=== PATIENT | male | born 1955 | race African-American/Black ===

== ENCOUNTER → 2022-09-30 | Outpatient (CLI) | payer OTHER ==
[2022-09-30 09:08] LABS: Urine WBC None Seen /hpf (0 - 3)
[2022-09-30 09:13] LABS: Basophils # (auto) 0 10 ^3/uL (0-0.2); Basophils % (auto) 0.8 % (0.0-2.0); Eosinophils # (auto) 0.5 10 ^3/uL (0-0.8); Hematocrit 35.5 % (41.0-53.0); Lymphocytes # (auto) 2.1 10 ^3/uL (0.4-5.4); Mean Corpuscular Hemoglobin 31.4 pg (28.0-32.0); Mean Corpuscular Hgb Conc. 33.9 g/dL (32.0-36.0); Mean Corpuscular Volume 92.6 fL (80.0-100.0); Monocytes # (auto) 0.5 10 ^3/uL (0-1.3); Monocytes % (auto) 10.3 % (0.0-12.0); Neutrophils # (auto) 1.9 10 ^3/uL (1.6-8.6); Neutrophils % (auto) 37.9 % (37.0-80.0); Nucleated Red Blood Cells % 0.1 %; Red Blood Cells 3.83 10^6/uL (4.5-5.90); Red Cell Distribution Width 13.3 % (11.8-14.3)
[2022-09-30 09:27] LABS: Urine Bacteria NONE SEEN /hpf (None Seen); Urine Blood Negative /uL (Negative); Urine Specific Gravity 1.017 (1.001-1.035)
[2022-09-30 10:16] LABS: Potassium 3.5 mmol/L (3.5-5.1)
[2022-09-30 10:25] LABS: Folate (Folic Acid) 10.34 ng/mL (5.38-24)
[2022-09-30 10:26] LABS: Albumin 3.4 g/dL (3.4-5.0); BUN/Creatinine Ratio 15.3 (10.0-20.0); Bilirubin, Total 0.5 mg/dL (0.2-1.0); Calcium 8.2 mg/dL (8.5-10.1); Total Protein 7.4 g/dL (6.4-8.2)
== END | disposition home or self-care (01) ==
LOC: LAB 08:54
PROVIDERS: ATTEND Internal Medicine
DX: R79.89 Other specified abnormal findings of blood chemistry (principal); E78.49 Other hyperlipidemia; R68.89 Other general symptoms and signs; R73.09 Other abnormal glucose
CPT/HCPCS: 36415; 80053; 80061; 81001; 82306; 82607; 82746; 83036; 84443; 84550; 85025; 87086

== ENCOUNTER → 2023-04-14 | Outpatient (CLI) | payer OTHER ==
[2023-04-14 09:04] LABS: Basophils # (auto) 0 10 ^3/uL (0-0.2); Basophils % (auto) 0.7 % (0.0-2.0); Eosinophils # (auto) 0.2 10 ^3/uL (0-0.8); Eosinophils % (auto) 4.2 % (0.0-7.0); Hematocrit 37.8 % (41.0-53.0); Hemoglobin 12.7 g/dL (13.5-17.5); Lymphocytes # (auto) 2.1 10 ^3/uL (0.4-5.4); Lymphocytes % (auto) 41.3 % (10.0-50.0); Mean Corpuscular Hemoglobin 31.1 pg (28.0-32.0); Mean Corpuscular Hgb Conc. 33.6 g/dL (32.0-36.0); Mean Corpuscular Volume 92.6 fL (80.0-100.0); Monocytes # (auto) 0.5 10 ^3/uL (0-1.3); Monocytes % (auto) 10.4 % (0.0-12.0); Neutrophils # (auto) 2.2 10 ^3/uL (1.6-8.6); Neutrophils % (auto) 43.4 % (37.0-80.0); Nucleated Red Blood Cells % 0.1 %; Red Blood Cells 4.08 10^6/uL (4.5-5.90); Red Cell Distribution Width 13.4 % (11.8-14.3); White Blood Cell 5.1 10^3/uL (4.4-10.8)
[2023-04-14 09:18] LABS: Urine Bacteria NONE SEEN /hpf (None Seen); Urine Blood Negative /uL (Negative); Urine Clarity Clear (Clear); Urine Color Yellow (Yellow); Urine Protein, UAD Negative (Negative); Urine Specific Gravity 1.018 (1.001-1.035); Urine Urobilinogen Normal (Negative); Urine WBC <1 /hpf (0 - 3); Urine pH 5.5 (5.0-8.0)
[2023-04-14 09:46] LABS: Alanine Aminotransferase 22 U/L (7-40); Albumin 4.1 g/dL (3.2-4.8); Alkaline Phosphatase 56 U/L (46-116); Anion Gap 5 (5-15); Aspartate Aminotransferase 22 U/L (13-40); BUN/Creatinine Ratio 9.7 (10.0-20.0); Bilirubin, Total 0.6 mg/dL (0.2-1.0); Blood Urea Nitrogen 14 mg/dL (9-23); Calcium 9.5 mg/dL (8.5-10.1); Carbon Dioxide 28 mmol/L (20-30); Chloride 103 mmol/L (98-107); Cholesterol 141 mg/dL (< 200); Glucose 260 mg/dL (74-106); HDL Cholesterol 56 mg/dL (40-59); LDL Cholesterol 66 mg/dL (< 100); Potassium 4.5 mmol/L (3.5-5.1); Sodium 136 mmol/L (136-145); Total Protein 7.2 g/dL (5.7-8.2); Triglycerides 106 mg/dL (< 150)
[2023-04-14 10:19] LABS: Folate (Folic Acid) 12.31 ng/mL (>5.38)
== END | disposition home or self-care (01) ==
LOC: LAB 08:51
PROVIDERS: ATTEND Internal Medicine
DX: E61.9 Deficiency of nutrient element, unspecified (principal); R78.89 Finding of other specified substances, not normally found in blood; R68.89 Other general symptoms and signs; E78.9 Disorder of lipoprotein metabolism, unspecified; R94.6 Abnormal results of thyroid function studies; E79.0 Hyperuricemia without signs of inflammatory arthritis and tophaceous disease; R82.991 Hypocitraturia; E85.9 Amyloidosis, unspecified; R82.90 Unspecified abnormal findings in urine; R82.79 Other abnormal findings on microbiological examination of urine; D51.9 Vitamin B12 deficiency anemia, unspecified
CPT/HCPCS: 36415; 80053; 80061; 81001; 82306; 82607; 82746; 83036; 84443; 84484; 84550; 85025; 87086

== ENCOUNTER → 2023-06-13 | Outpatient (CLI) | payer OTHER ==
[2023-06-13 09:24] LABS: Basophils # (auto) 0 10 ^3/uL (0-0.2); Basophils % (auto) 0.7 % (0.0-2.0); Eosinophils # (auto) 0.3 10 ^3/uL (0-0.8); Eosinophils % (auto) 4.7 % (0.0-7.0); Hematocrit 38.8 % (41.0-53.0); Hemoglobin 12.9 g/dL (13.5-17.5); Lymphocytes # (auto) 2.3 10 ^3/uL (0.4-5.4); Lymphocytes % (auto) 42.9 % (10.0-50.0); Mean Corpuscular Hemoglobin 30.6 pg (28.0-32.0); Mean Corpuscular Hgb Conc. 33.2 g/dL (32.0-36.0); Mean Corpuscular Volume 92.1 fL (80.0-100.0); Monocytes # (auto) 0.6 10 ^3/uL (0-1.3); Neutrophils # (auto) 2.2 10 ^3/uL (1.6-8.6); Neutrophils % (auto) 40.7 % (37.0-80.0); Nucleated Red Blood Cells % 0.1 %; Red Blood Cells 4.22 10^6/uL (4.5-5.90); Red Cell Distribution Width 13.8 % (11.8-14.3); White Blood Cell 5.4 10^3/uL (4.4-10.8)
[2023-06-13 10:20] LABS: Alanine Aminotransferase 22 U/L (7-40); Alkaline Phosphatase 50 U/L (46-116); Anion Gap 7 (5-15); Aspartate Aminotransferase 29 U/L (13-40); BUN/Creatinine Ratio 11.5 (10.0-20.0); Bilirubin, Total 0.7 mg/dL (0.2-1.0); Blood Urea Nitrogen 15 mg/dL (9-23); Calcium 9.3 mg/dL (8.5-10.1); Carbon Dioxide 28 mmol/L (20-30); Chloride 101 mmol/L (98-107); Glucose 136 mg/dL (74-106); Potassium 3.8 mmol/L (3.5-5.1); Sodium 136 mmol/L (136-145)
[2023-06-13 10:21] LABS: Total Protein 6.8 g/dL (5.7-8.2)
[2023-06-13 10:36] LABS: Uric Acid 8.5 mg/dL (3.7-9.2)
[2023-06-13 10:54] LABS: Folate (Folic Acid) 13.02 ng/mL (>5.38)
== END | disposition home or self-care (01) ==
LOC: LAB 09:07
PROVIDERS: ATTEND Internal Medicine
DX: E61.2 Magnesium deficiency (principal); E79.0 Hyperuricemia without signs of inflammatory arthritis and tophaceous disease; R82.998 Other abnormal findings in urine; R94.6 Abnormal results of thyroid function studies; E55.9 Vitamin D deficiency, unspecified; D51.9 Vitamin B12 deficiency anemia, unspecified; R82.79 Other abnormal findings on microbiological examination of urine; R78.89 Finding of other specified substances, not normally found in blood; R68.89 Other general symptoms and signs; R73.09 Other abnormal glucose; E78.49 Other hyperlipidemia
CPT/HCPCS: 36415; 80053; 82306; 82607; 82746; 83036; 84443; 84550; 85025

== ENCOUNTER → 2023-10-03 | Outpatient (CLI) | payer OTHER ==
[2023-10-03 08:48] LABS: Calcium 9.4 mg/dL (8.5-10.1); Carbon Dioxide 30 mmol/L (20-30)
[2023-10-03 08:51] LABS: Chloride 103 mmol/L (98-107); Potassium 4.3 mmol/L (3.5-5.1); Sodium 135 mmol/L (136-145)
[2023-10-03 08:53] LABS: BUN/Creatinine Ratio 9.5 (10.0-20.0); Blood Urea Nitrogen 14 mg/dL (9-23); Glucose 358 mg/dL (74-106)
[2023-10-03 08:54] LABS: Creatinine, Urine 87.35 mg/dL (30.0-125.0)
[2023-10-03 11:38] LABS: Anion Gap 2 (5-15)
== END | disposition home or self-care (01) ==
LOC: LAB 07:54
PROVIDERS: ATTEND Internal Medicine
DX: E11.9 Type 2 diabetes mellitus without complications (principal)
CPT/HCPCS: 36415; 80048; 82043; 82570

== ENCOUNTER → 2024-07-08 | Outpatient (CLI) | payer OTHER ==
[2024-07-08 09:32] LABS: Basophils # (auto) 0 10 ^3/uL (0-0.2); Basophils % (auto) 0.5 % (0.0-2.0); Eosinophils # (auto) 0.3 10 ^3/uL (0-0.8); Eosinophils % (auto) 5.4 % (0.0-7.0); Hematocrit 40.5 % (41.0-53.0); Hemoglobin 13.6 g/dL (13.5-17.5); Lymphocytes # (auto) 2.5 10 ^3/uL (0.4-5.4); Lymphocytes % (auto) 44.7 % (10.0-50.0); Mean Corpuscular Hemoglobin 31.3 pg (28.0-32.0); Mean Corpuscular Hgb Conc. 33.7 g/dL (32.0-36.0); Mean Corpuscular Volume 92.8 fL (80.0-100.0); Monocytes # (auto) 0.6 10 ^3/uL (0-1.3); Monocytes % (auto) 9.9 % (0.0-12.0); Neutrophils # (auto) 2.2 10 ^3/uL (1.6-8.6); Neutrophils % (auto) 39.5 % (37.0-80.0); Nucleated Red Blood Cells % 0.1 %; Platelet Count (auto) 269 10^3/uL (140-450); Red Blood Cells 4.36 10^6/uL (4.5-5.90); Red Cell Distribution Width 13.7 % (11.8-14.3); White Blood Cell 5.6 10^3/uL (4.4-10.8)
[2024-07-08 10:07] LABS: Chloride 100 mmol/L (98-107); Potassium 4.1 mmol/L (3.5-5.1)
[2024-07-08 10:08] LABS: Anion Gap 5 (5-15); Carbon Dioxide 30 mmol/L (20-31)
[2024-07-08 10:13] LABS: BUN/Creatinine Ratio 11.9 (10.0-20.0); Blood Urea Nitrogen 17 mg/dL (9-23)
[2024-07-08 10:15] LABS: Glucose 241 mg/dL (74-106); Sodium 135 mmol/L (136-145)
== END | disposition home or self-care (01) ==
LOC: LAB 08:56
PROVIDERS: ATTEND Internal Medicine
DX: R78.89 Finding of other specified substances, not normally found in blood (principal); R68.89 Other general symptoms and signs; R73.09 Other abnormal glucose; E79.0 Hyperuricemia without signs of inflammatory arthritis and tophaceous disease; E61.2 Magnesium deficiency; R94.6 Abnormal results of thyroid function studies; E55.9 Vitamin D deficiency, unspecified; R82.90 Unspecified abnormal findings in urine; R82.79 Other abnormal findings on microbiological examination of urine; D51.9 Vitamin B12 deficiency anemia, unspecified
CPT/HCPCS: 36415; 80048; 82306; 83036; 85025; 87086

== ENCOUNTER 2025-01-06 08:12 | Outpatient (CLI) | payer OTHER ==
[2025-01-06 09:57] LABS: Chloride 105 mmol/L (98-107); Sodium 141 mmol/L (136-145)
[2025-01-06 09:58] LABS: Anion Gap 7 (5-15); Carbon Dioxide 29 mmol/L (20-31)
[2025-01-06 09:59] LABS: Calcium 9.2 mg/dL (8.7-10.4); Potassium 3.4 mmol/L (3.5-5.1)
[2025-01-06 10:04] LABS: BUN/Creatinine Ratio 7.0 (10.0-20.0); Blood Urea Nitrogen 11 mg/dL (9-23)
[2025-01-06 10:06] LABS: Glucose 64 mg/dL (74-106)
[2025-01-06 10:38] LABS: Microalb/Creat Ratio, Urine 21.0
== END 2025-01-06 17:00 | disposition home or self-care (01) ==
LOC: LAB 08:12
PROVIDERS: ATTEND Internal Medicine
DX: E11.00 Type 2 diabetes mellitus with hyperosmolarity without nonketotic hyperglycemic-hyperosmolar coma (NKHHC) (principal)
CPT/HCPCS: 36415; 80048; 82043; 82570

== ENCOUNTER 2025-01-19 08:21 | Outpatient (CLI) | payer OTHER ==
[2025-01-19 08:41] LABS: Hematocrit 41.6 % (41.0-53.0); Hemoglobin 13.9 g/dL (13.5-17.5); Mean Corpuscular Hemoglobin 30.9 pg (28.0-32.0); Mean Corpuscular Volume 92.1 fL (80.0-100.0); Nucleated Red Blood Cells % 0.0 %
[2025-01-19 09:06] LABS: Alanine Aminotransferase 16 U/L (7-40); Albumin 4.0 g/dL (3.2-4.8); Alkaline Phosphatase 53 U/L (46-116); Anion Gap 8 (5-15); BUN/Creatinine Ratio 7.7 (10.0-20.0); Blood Urea Nitrogen 13 mg/dL (9-23); Calcium 9.0 mg/dL (8.7-10.4); Carbon Dioxide 28 mmol/L (20-31); Chloride 104 mmol/L (98-107); Magnesium 1.8 mg/dL (1.6-2.6); Potassium 3.8 mmol/L (3.5-5.1); Sodium 140 mmol/L (136-145); Total Protein 7.5 g/dL (5.7-8.2); Urine Protein, UAD Negative (Negative)
[2025-01-19 09:07] LABS: Bilirubin, Total 0.6 mg/dL (0.2-1.0)
[2025-01-19 09:09] LABS: Cholesterol 236 mg/dL (< 200); Glucose 199 mg/dL (74-106); HDL Cholesterol 60 mg/dL (40-59); Triglycerides 165 mg/dL (< 150)
[2025-01-19 10:06] LABS: Uric Acid 8.6 mg/dL (3.7-9.2)
== END 2025-01-19 17:00 | disposition home or self-care (01) ==
LOC: LAB 08:21
PROVIDERS: ATTEND Internal Medicine
DX: E11.9 Type 2 diabetes mellitus without complications (principal); E78.49 Other hyperlipidemia; E61.2 Magnesium deficiency; E79.0 Hyperuricemia without signs of inflammatory arthritis and tophaceous disease; E55.9 Vitamin D deficiency, unspecified; D51.9 Vitamin B12 deficiency anemia, unspecified; R82.79 Other abnormal findings on microbiological examination of urine; R78.4 Finding of other drugs of addictive potential in blood; R82.90 Unspecified abnormal findings in urine; R82.998 Other abnormal findings in urine; R94.6 Abnormal results of thyroid function studies; R68.89 Other general symptoms and signs
CPT/HCPCS: 36415; 80053; 80061; 81001; 82306; 82607; 82746; 83036; 83735; 84443; 84480; 84550; 85025; 87086

== ENCOUNTER 2025-02-24 08:27 | Inpatient (IN) | payer OTHER ==
[~2025-02-24] VITALS: Ht 185.4 cm; Wt 114.5 kg
--- NOTE | 2025-02-24 09:04 | ED.PDOC ---
GI ASSESSMENT HPI Comments This is a 68 year old male presenting to the ED with chief complaint of abdominal pain. Patient reports that he has been experiencing LLQ abdominal pain for the past few days with associated swelling and worsening pain in the night. Patient relays that he was recently diagnosed with shingles last week located on his left flank and LLQ, but he had finished his course of antiviral medication. Patient denies any N/V/D, dysuria, dizziness, fever, or chills. Chief Complaint: Flank Pain Time Seen by MD: 09:01 Reviewed Notes: Nurses Notes, Medications, Allergies Allergies: Coded Allergies: NO KNOWN ALLERGIES (Unverified , 02/24/25) Home Meds Reported Medications Insulin Lispro (Human) (Humalog) 100 Unit/Ml Inj, 20 UNIT SC BID, INJ 02/24/25 Insulin Glargine (Lantus) 100 Unit/Ml Inj, 35 UNIT SC BID, INJ 02/24/25 Information Source: Patient Mode of Arrival: Ambulatory Timing: Days Duration: Since onset Prehospital treatment: None Quality: Sharp Vomitus: None Stool: Normal Severity: Moderate Recent: None Recent Hx of: None Pain Location: LLQ Modifying Factors: Nothing Associated sign and symptoms: Abdominal Pain Past Medical History Past Medical History (Other): Shingles Surgical History: Denies all surgeries Family History Family History: Reviewed,noncontributory to illness Social History Smoker: Non-Smoker Alcohol: Denies ETOH Use Drugs: Denies Drug Use Lives In: Home Constitutional: denies: chills, diaphoresis, fatigue, fever, malaise, sweats, weakness, others EENTM: denies: blurred vision, double vision, ear bleeding, ear discharge, ear drainage, ear pain, ear ringing, eye pain, eye redness, hearing loss, mouth pain, mouth swelling, nasal discharge, nose bleeding, nose congestion, nose pain, photophobia, tearing, throat pain, throat swelling, voice changes, others Respiratory: denies: cough, hemoptysis, orthopnea, SOB at rest, shortness of breath, SOB with excertion, stridor, wheezing, others Cardiovascular: denies: chest pain, dizzy spells, diaphoresis, Dyspnea on exertion, edema, irregular heart beat, left arm pain, lightheadedness, palpitations, PND, syncope, others Gastrointestinal: reports: abdominal pain; denies: abdomen distended, blood streaked bowels, constipated, diarrhea, dysphagia, difficulty swallowing, hematemesis, melena, nausea, poor appetite, poor fluid intake, rectal bleeding, rectal pain, vomiting, others Genitourinary: denies: burning, dysuria, flank pain, frequency, hematuria, incontinence, penile discharge, penile sore, pain, testicle pain, testicle swelling, urgency, others Neurological: denies: dizziness, fainting, headache, left sided numbness, left sided weakness, numbness, paresthesia, pre-existing deficit, right sided numbness, right sided weakness, seizure, speech problems, tingling, tremors, weakness, others Musculoskeletal: denies: back pain, gout, joint pain, joint swelling, muscle pain, muscle stiffness, neck pain, others Integumetry: denies: bruises, change in color, change in hair/nails, dryness, laceration, lesions, lumps, rash, wounds, others Allergic/Immunocompromised: denies: Difficulty Healing, Frequent Infections, Hives, Itching, others Hematologic/Lymphatic: denies: anemia, blood clots, easy bleeding, easy bruising, swollen glands, others Endocrine: denies: excessive hunger, excessive sweating, excessive thirst, excessive urination, flushing, intolerance to cold, intolerance to heat, unexpl ained weight gain, unexplained weight loss, others Psychiatric: denies: anxiety, bipolar disorder, depression, hopeless, panic disorder, schizophrenia, sleepless, suicidal, others All Other Systems: Reviewed and Negative Physical Exam General Appearance: No Apparent Distress, Normal HEENT: Normal ENT Inspection, Pharynx Normal, TMs Normal Neck: Full Range of Motion, Non-Tender, Normal, Normal Inspection Respiratory: Chest Non-Tender, Lungs Clear, No Accessory Muscle Use, No Respiratory Distress, Normal Breath Sounds Cardiovascular: No Edema, No JVD, No Murmur, No Gallop, Normal Peripheral Pulses, Regular Rate/Rhythm Breast Exam: Deferred Gastrointestinal: No Organomegaly, Non Tender, No Pulsatile Mass, Normal Bowel Sounds, Soft Genitalia: Deferred Pelvic: Deferred Rectal: Deferred Extremities: No calf tenderness, Normal capillary refill, Normal inspection, Normal range of motion, Non-tender, No pedal edema Musculoskeletal : Apperance: Normal Neurologic: Alert, knocker off II-XII nml as Tested, No Motor Deficits, Normal Affect, Normal Mood, No Sensory Deficits Cerebellar Function: Normal Reflexes: Normal Skin: Dry, Normal Color, Warm Lymphatic: No Adenopathy Was a procedure done? Was a procedure done?: No GI differential Dx Differential Diagnosis: Gastritis/PUD, Gastroenteritis, Inflammatory BD, UTI, Dehydration X-Ray, Labs, Meds, VS Vital Signs Date Time Temp Pulse Resp B/P (MAP) Pulse Ox O2 Delivery O2 Flow Rate FiO2 02/24/25 13:49 62 13 198/104 02/24/25 12:30 97.7 61 17 166/89 (114) 100 97.7 02/24/25 12:27 61 17 166/97 02/24/25 09:30 63 18 179/95 (123) 98 02/24/25 09:30 63 18 98 Room Air 02/24/25 08:30 97.2 66 18 178/100 99 97.2 Lab Test 02/24/25 09:06 02/24/25 09:00 Range/Units White Blood Count 5.3 4.4-10.8 10^3/uL Red Blood Count 4.12 L 4.5-5.90 10^6/uL Hemoglobin 13.1 L 13.5-17.5 g/dL Hematocrit 38.6 L 41.0-53.0 % Mean Corpuscular Volume 93.7 80.0-100.0 fL Mean Corpuscular Hemoglobin 31.9 28.0-32.0 pg Mean Corpuscular Hemoglobin Concent 34.0 32.0-36.0 g/dL Red Cell Distribution Width 14.4 H 11.8-14.3 % Platelet Count 312 140-450 10^3/uL Mean Platelet Volume 7.5 6.9-10.8 fL Neutrophils (%) (Auto) 35.1 L 37.0-80.0 % Lymphocytes (%) (Auto) 52.6 H 10.0-50.0 % Monocytes (%) (Auto) 6.9 0.0-12.0 % Eosinophils (%) (Auto) 4.9 0.0-7.0 % Basophils (%) (Auto) 0.5 0.0-2.0 % Neutrophils # (Auto) 1.9 1.6-8.6 10 ^3/uL Lymphocytes # (Auto) 2.8 0.4-5.4 10 ^3/uL Monocytes # (Auto) 0.4 0-1.3 10 ^3/uL Eosinophils # (Auto) 0.3 0-0.8 10 ^3/uL Basophils # (Auto) 0 0-0.2 10 ^3/uL Nucleated Red Blood Cells 0.0 % Sodium Level 141 136-145 mmol/L Potassium Level 3.9 3.5-5.1 mmol/L Chloride Level 107 98-107 mmol/L Carbon Dioxide Level 28 20-31 mmol/L Anion Gap 6 5-15 Blood Urea Nitrogen 12 9-23 mg/dL Creatinine 1.39 H 0.700-1.30 mg/dL Glomerular Filtration Rate Calc 56 >90 mL/min BUN/Creatinine Ratio 8.6 L 10.0-20.0 Serum Glucose 177 H 74-106 mg/dL Calcium Level 8.5 L 8.7-10.4 mg/dL Lipase 49 12-53 U/L Urine Color Light-yellow Yellow Urine Clarity Clear Clear Urine pH 5.0 5.0-9.0 Urine Specific [place] 1.015 1.001-1.035 Urine Protein Negative Negative Urine Ketones Negative Negative Urine Blood Negative Negative /uL Urine Nitrite Negative Negative Urine Bilirubin Negative Negative Urine Urobilinogen Normal Negative mg/dL Urine Leukocyte Esterase Negative Negative /uL Urine RBC <1 0 - 3 /hpf Urine Microscopic WBC 1 0-3 /HPF Urine Squamous Epithelial Cells None seen <5 /hpf Urine Bacteria None seen None Seen /hpf Urine Glucose 1+ H Normal mg/dL Time of 1ST Reevaluation: 10:00 Reevaluation 1ST: Unchanged Patient Education/Counseling: Diagnosis, Treatment Family Education/Counseling: No Family Present SEPSIS Sepsis Screen Date sepsis recognized/suspect: Feb 24, 2025 Time Sepsis recognized/suspect: 0832 Recent Procedure: No On Antibiotic Therapy: No Respiratory Rate >20: No Heart Rate >90: No Temp<36 C (96.8 F) or >38.3 C: No SBP <90 or MAP <65 mmHG: No New Acute Mental Status Change: No Is the patient on CPAP, BIPAP,: No Physician Orders Ct Ab Pel With Iv Con Only (02/24/25 09:00) Vital Signs Date Time Temp Pulse Resp B/P (MAP) Pulse Ox O2 Delivery O2 Flow Rate FiO2 02/24/25 13:49 62 13 198/104 02/24/25 12:30 97.7 61 17 166/89 (114) 100 97.7 02/24/25 12:27 61 17 166/97 02/24/25 09:30 63 18 179/95 (123) 98 02/24/25 09:30 63 18 98 Room Air 02/24/25 08:30 97.2 66 18 178/100 99 97.2 Laboratory Tests Test 02/24/25 09:06 White Blood Count 5.3 10^3/uL (4.4-10.8) Departure 1 Departure Time of Disposition: 18:44 (Patient presented with abdominal pain that was concerning for possible appendicits, gastritis, cholecystitis, colitis, gastroenteritis, sbo, or orther possible surgical emergency. Data: 1. I ordered and reviewed the result of at least 3 labs including a CBC, BMP, and Urinalysis. 2. I independently interpreted the following tests: CT Abdomen and Pelvis is concerning for lumbar issues and colitis .Risk:This patient has a high risk of morbidity due to further diagnostic testing or treatment and may suffer from an acute abdominal process disorder. Workup reveals intractable abdominal pain and patient should be admitted for further workup. and possible expert consultation. ) Impression: Primary Impression: Intractable abdominal pain Disposition: ADMITTED INPATIENT Admit to: Med Surg Condition: Guarded Critical Care Note Critical Care Time?: Yes Critical care comment: Intractable abdominal pain Authorized and Performed by: Kaz Enrique MD Total critical care time: Approximately 41 minutes Due to a high probability of clinically significant, life threatening deterioration, the patient required my highest level of preparedness to intervene emergently and I personally spent this critical care time directly and personally managing the patient. This critical care time included obtaining a history; examining the patient; pulse oximetry; ordering and review of studies; arranging urgent treatment with development of a management plan; evaluation of patient's response to treatment; frequent reassessment; and, discussions with other providers. This critical care time was performed to assess and manage the high probability of imminent, life-threatening deterioration that could result in multi-organ failure. It was exclusive of separately billable procedures and treating other patients and teaching time. Please see my other sections and the rest of the note for further information on patient assessment and treatment. Stability Stability form required: No Heart Score Heart Score: Heart Score Response (Comments) Value History N/A 0 EKG N/A 0 Age N/A 0 Risk Factors N/A 0 Troponin N/A 0 Total 0 I personally scribed for KAZ ENRIQUE MD ([email or web address]) on 02/24/25 at 09:03. Electronically submitted by Pan Newell ([email or web address]). KAZ ENRIQUE MD Feb 24, 2025 09:03
[2025-02-24 09:29] LABS: Hematocrit 38.6 % (41.0-53.0); Hemoglobin 13.1 g/dL (13.5-17.5); Mean Corpuscular Hemoglobin 31.9 pg (28.0-32.0); Mean Corpuscular Volume 93.7 fL (80.0-100.0); Nucleated Red Blood Cells % 0.0 %
[2025-02-24 09:33] LABS: Urine Protein, UAD Negative (Negative)
[2025-02-24 09:39] LABS: Potassium 3.9 mmol/L (3.5-5.1); Sodium 141 mmol/L (136-145)
[2025-02-24 09:40] LABS: Anion Gap 6 (5-15); Carbon Dioxide 28 mmol/L (20-31)
[2025-02-24 09:41] LABS: Calcium 8.5 mg/dL (8.7-10.4); Chloride 107 mmol/L (98-107)
[2025-02-24 09:45] LABS: BUN/Creatinine Ratio 8.6 (10.0-20.0); Blood Urea Nitrogen 12 mg/dL (9-23)
[2025-02-24 09:47] LABS: Glucose 177 mg/dL (74-106)
[2025-02-24] MEDS: IOHEXOL 300 MG/ML 100ML BOTTLE IJ ONE (10:00)
--- NOTE | 2025-02-24 10:34 | DVH ---
EXAM: CT CT AB PEL WITH IV CON ONLY HISTORY: abdominal pain COMPARISON: None TECHNIQUE: Helical CT images of the abdomen and pelvis were performed with 100 mL Omnipaque 300 IV co ntrast. Sagittal and coronal reformatted images were obtained. This CT exam was performed using one o r more of the following dose reduction techniques: Automated exposure control, adjustment of the mA a nd/or kv according to patient size, or the use of iterative reconstruction techniques. Radiation Dose: Abdomen/Pelvis: CTDIvol 24.83 mGy, DLP 1564.52 mGy*cm. FINDINGS: CT abdomen: The lung bases are clear. The heart is mildly enlarged. The central pulmonary arteries ar e borderline ectatic. The liver may be diffusely fatty density. There is mild perinephric fat strand ing bilaterally, without hydronephrosis or suspicious renal masses visualized The spleen, gallbladder , pancreas, and adrenal glands are unremarkable. No abdominal aortic aneurysm. CT pelvis: No abnormal bowel dilatation, free air, or free fluid. The appendix does not appear dilate d or inflamed. The urinary bladder wall is diffusely thickened, although the urinary bladder is not d istended. The prostate is moderately enlarged. There is advanced degenerative disc disease L5-S1 with significant neural foraminal stenosis bilaterally at that level. There is mild osteoarthritis of the hips. IMPRESSION: 1. Hepatomegaly and possible pulmonary arterial hypertension. 2. Urinary bladder wall thickening may be due to cystitis versus artifactual appearance due to lack o f luminal distention. 3. Moderate prostatic enlargement. 4. Advanced degenerative disc disease L5-S1. Consider follow-up noncontrast MRI of the lumbar spine for better characterization on an outpatient basis, especially if the patient complains of lower extr emity radicular symptoms. 5. No evidence of bowel obstruction, acute appendicitis, or other acute process in the abdomen or pel vis.
[2025-02-24] MEDS: SODIUM CHLORIDE 0.9% 1,000 ML IV ONE (11:58)
[2025-02-24] MEDS: ONDANSETRON HCL 4 MG/2 ML VIAL IV ONE (12:26)
[2025-02-24] MEDS: MORPHINE SULFATE INJ 2 MG/ml SYRG ONE (12:27)
[2025-02-24] MEDS: MORPHINE SULFATE 4 MG/ML SYR/VIAL IV ONE (12:35)
[2025-02-24] MEDS ORDERED: KETOROLAC TROMETH 30 MG/ML 1ML VIAL IV PRN (14:00)
[2025-02-24] MEDS ORDERED: HYDROcodone-ACET 5/325MG TAB PO PRN (14:00)
[2025-02-24] MEDS ORDERED: ACETAMINOPHEN 325 MG TAB PO PRN (14:00)
[2025-02-24] MEDS ORDERED: ONDANSETRON HCL 4 MG/2 ML VIAL IV PRN (14:00)
[2025-02-24] MEDS ORDERED: INSU100I2 SC (15:47)
[2025-02-24] MEDS ORDERED: INSLANTI SC (15:47)
[2025-02-24 16:52] VITALS: BP 166/98; PULSE 61; RESP 18; TEMP 97.8; O2SAT 95
[2025-02-24] MEDS ORDERED: DEXTROSE (50%) 50ML SYRG IV PRN (17:45)
[2025-02-24] MEDS: LOSARTAN POTASSIUM 50 MG TAB PO ONE (19:58)
[2025-02-24 20:49] VITALS: BP 164/94; PULSE 75; RESP 18; TEMP 97.9; O2SAT 96
[2025-02-24] MEDS: GABAPENTIN 100 MG CAP PO SCH (21:42)
[2025-02-24] MEDS: InsuLIN REG 1unit/0.01ml Soln (100units/ml) SC SCH (21:56)
[2025-02-24] MEDS: ACCU-CHEK COMFORT CURVE STRIP VI SCH (21:57)
[2025-02-25 01:00] VITALS: BP 142/84; PULSE 57; RESP 18; TEMP 98.5; O2SAT 95
[2025-02-25 04:51] LABS: Chloride 106 mmol/L (98-107); Potassium 4.6 mmol/L (3.5-5.1); Sodium 141 mmol/L (136-145)
[2025-02-25 04:52] LABS: Anion Gap 7 (5-15); Carbon Dioxide 28 mmol/L (20-31)
[2025-02-25 04:57] LABS: BUN/Creatinine Ratio 7.9 (10.0-20.0); Blood Urea Nitrogen 10 mg/dL (9-23); Calcium 8.4 mg/dL (8.7-10.4); Glucose 165 mg/dL (74-106)
[2025-02-25 04:58] LABS: Hematocrit 38.1 % (41.0-53.0); Hemoglobin 12.9 g/dL (13.5-17.5); Mean Corpuscular Hemoglobin 31.5 pg (28.0-32.0); Mean Corpuscular Volume 93.0 fL (80.0-100.0); Nucleated Red Blood Cells % 0.8 %
[2025-02-25 05:00] VITALS: BP 149/87; PULSE 78; RESP 19; TEMP 98.6; O2SAT 95
[2025-02-25] MEDS: InsuLIN REG 1unit/0.01ml Soln (100units/ml) SC SCH (06:13)
[2025-02-25 08:32] VITALS: BP 182/99; PULSE 70; RESP 17; TEMP 98; O2SAT 96
[2025-02-25] MEDS: LOSARTAN POTASSIUM 50 MG TAB PO SCH (09:44)
--- NOTE | 2025-02-25 11:15 | DVHHP2 ---
History of Present Illness Reason for Visit: Abdominal pain History of Present Illness 68-year-old male presents for evaluation of abdominal pain. Patient endorses a two day history of left lower quadrant cramping that is intermittent. He states that today the cramping low as more constant. No nausea or vomiting. No diarrhea. No fever or chills. Patient reports recently being treated for shingles which was localized to his left abdomen. Past Medical History Shingles Past Surgical History Denies Family History Noncontributory Smoke: No ALCOHOL: none Drugs: None Lives: with Family Review of Systems Review of Systems Review of systems are currently negative otherwise addressed in HPI. Allergies: Coded Allergies: NO KNOWN ALLERGIES (Unverified , 02/24/25) Medications Current Medications Medications Dose Ordered Sig/Lizett Route Start Time Stop Time Status Last Admin Dose Admin Ketorolac Tromethamine 15 mg Q6HPRN PRN IV 02/24/25 14:00 03/01/25 13:59 Acetaminophen/ Hydrocodone Bitart 1 tab Q4HP PRN PO 02/24/25 14:00 Ondansetron HCl 4 mg Q4HP PRN IV 02/24/25 14:00 Acetaminophen 650 mg Q6HP PRN PO 02/24/25 14:00 Exam Vital Signs Vital Signs Date Time Temp Pulse Resp B/P (MAP) Pulse Ox O2 Delivery O2 Flow Rate FiO2 02/24/25 13:49 62 13 198/104 02/24/25 12:30 97.7 100 97.7 02/24/25 09:30 Room Air Exam Gen: 68-year-old male in mild distress. Dr. Garrison Skin: Warm, dry, normal color and texture, scabbed lesions (shingles) HEENT: Normocephalic atraumatic, mucous membranes moist and pink. Neck: Cervical and supraclavicular nodes normal without enlargement, trachea is midline, thyroid gland is normal without masses. Pulmonary: Clear to auscultation and percussion bilaterally. Cardiac: Regular rate and rhythm. No murmur Abdomen: Soft, left lower quadrant tenderness, nondistended, bowel sounds present all 4 quadrants, no guarding, no rigidity, no organomegaly. Extremities: No cyanosis, clubbing, no edema Neuro: Cranial nerves II through XII grossly intact, normal affect and speech, no focal motor deficits. Labs/Xrays ORDERING PHYSICIAN: KAZ NARVAEZ MD PROCEDURE(s): ABPLIV - CT AB PEL WITH IV CON ONLY REASON: abdominal pain ORDER NUMBER(s): [id number], ACCESSION NUMBER(s): [id number] EXAM: CT CT AB PEL WITH IV CON ONLY HISTORY: abdominal pain COMPARISON: None TECHNIQUE: Helical CT images of the abdomen and pelvis were performed with 100 mL Omnipaque 300 IV contrast. Sagittal and coronal reformatted images were obtained. This CT exam was performed using one or more of the following dose reduction techniques: Automated exposure control, adjustment of the mA and/or kv according to patient size, or the use of iterative reconstruction techniques. Radiation Dose: Abdomen/Pelvis: CTDIvol 24.83 mGy, DLP 1564.52 mGy*cm. FINDINGS: CT abdomen: The lung bases are clear. The heart is mildly enlarged. The central pulmonary arteries are borderline ectatic. The liver may be diffusely fatty density. There is mild perinephric fat stranding bilaterally, without hydronephrosis or suspicious renal masses visualized The spleen, gallbladder, pancreas, and adrenal glands are unremarkable. No abdominal aortic aneurysm. CT pelvis: No abnormal bowel dilatation, free air, or free fluid. The appendix does not appear dilated or inflamed. The urinary bladder wall is diffusely thickened, although the urinary bladder is not distended. The prostate is moderately enlarged. There is advanced degenerative disc disease L5-S1 with significant neural foraminal stenosis bilaterally at that level. There is mild osteoarthritis of the hips. IMPRESSION: 1. Hepatomegaly and possible pulmonary arterial hypertension. 2. Urinary bladder wall thickening may be due to cystitis versus artifactual appearance due to lack of luminal distention. 3. Moderate prostatic enlargement. 4. Advanced degenerative disc disease L5-S1. Consider follow-up noncontrast MRI of the lumbar spine for better characterization on an outpatient basis, especially if the patient complains of lower extremity radicular symptoms. 5. No evidence of bowel obstruction, acute appendicitis, or other acute process in the abdomen or pelvis. Labs Test 02/24/25 09:06 02/24/25 09:00 Range/Units White Blood Count 5.3 4.4-10.8 10^3/uL Red Blood Count 4.12 L 4.5-5.90 10^6/uL Hemoglobin 13.1 L 13.5-17.5 g/dL Hematocrit 38.6 L 41.0-53.0 % Mean Corpuscular Volume 93.7 80.0-100.0 fL Mean Corpuscular Hemoglobin 31.9 28.0-32.0 pg Mean Corpuscular Hemoglobin Concent 34.0 32.0-36.0 g/dL Red Cell Distribution Width 14.4 H 11.8-14.3 % Platelet Count 312 140-450 10^3/uL Mean Platelet Volume 7.5 6.9-10.8 fL Neutrophils (%) (Auto) 35.1 L 37.0-80.0 % Lymphocytes (%) (Auto) 52.6 H 10.0-50.0 % Monocytes (%) (Auto) 6.9 0.0-12.0 % Eosinophils (%) (Auto) 4.9 0.0-7.0 % Basophils (%) (Auto) 0.5 0.0-2.0 % Neutrophils # (Auto) 1.9 1.6-8.6 10 ^3/uL Lymphocytes # (Auto) 2.8 0.4-5.4 10 ^3/uL Monocytes # (Auto) 0.4 0-1.3 10 ^3/uL Eosinophils # (Auto) 0.3 0-0.8 10 ^3/uL Basophils # (Auto) 0 0-0.2 10 ^3/uL Nucleated Red Blood Cells 0.0 % Sodium Level 141 136-145 mmol/L Potassium Level 3.9 3.5-5.1 mmol/L Chloride Level 107 98-107 mmol/L Carbon Dioxide Level 28 20-31 mmol/L Anion Gap 6 5-15 Blood Urea Nitrogen 12 9-23 mg/dL Creatinine 1.39 H 0.700-1.30 mg/dL Glomerular Filtration Rate Calc 56 >90 mL/min BUN/Creatinine Ratio 8.6 L 10.0-20.0 Serum Glucose 177 H 74-106 mg/dL Calcium Level 8.5 L 8.7-10.4 mg/dL Urine Color Light-yellow Yellow Urine Clarity Clear Clear Urine pH 5.0 5.0-9.0 Urine Specific [place] 1.015 1.001-1.035 Urine Protein Negative Negative Urine Ketones Negative Negative Urine Blood Negative Negative /uL Urine Nitrite Negative Negative Urine Bilirubin Negative Negative Urine Urobilinogen Normal Negative mg/dL Urine Leukocyte Esterase Negative Negative /uL Urine RBC <1 0 - 3 /hpf Urine Microscopic WBC 1 0-3 /HPF Urine Squamous Epithelial Cells None seen <5 /hpf Urine Bacteria None seen None Seen /hpf Urine Glucose 1+ H Normal mg/dL SEPSIS Sepsis Screen Date sepsis recognized/suspect: Feb 24, 2025 Time Sepsis recognized/suspect: 0832 Recent Procedure: No On Antibiotic Therapy: No Respiratory Rate >20: No Heart Rate >90: No Temp<36 C (96.8 F) or >38.3 C: No SBP <90 or MAP <65 mmHG: No New Acute Mental Status Change: No Is the patient on CPAP, BIPAP,: No Physician Orders Ct Ab Pel With Iv Con Only (02/24/25 09:00) * Gi Dvh Hand Glove Cleaner (02/24/25 13:50) Ketorolac Injection (Toradol Injection) (02/24/25 14:00) Basic Metabolic Panel (02/25/25 04:00) Lipase (02/24/25 13:50) Admit (02/24/25 13:50) Hydrocodone-Acet 5/325mg Tab (Proctor 5/32 (02/24/25 14:00) Ondansetron Hcl (Zofran) (02/24/25 14:00) Complete Blood Count (02/25/25 04:00) Condition: Stable (02/24/25 13:50) Acetaminophen Tablet (Tylenol Tablet) (02/24/25 14:00) Clear Liq Diet (02/24/25 Dinner) Bedrest With Bathroom Privileg (02/24/25 13:50) Vital Signs Date Time Temp Pulse Resp B/P (MAP) Pulse Ox O2 Delivery O2 Flow Rate FiO2 02/24/25 13:49 62 13 198/104 02/24/25 12:30 97.7 61 17 166/89 (114) 100 97.7 02/24/25 12:27 61 17 166/97 02/24/25 09:30 63 18 179/95 (123) 98 02/24/25 09:30 63 18 98 Room Air 02/24/25 08:30 97.2 66 18 178/100 99 97.2 Laboratory Tests Test 02/24/25 09:06 White Blood Count 5.3 10^3/uL (4.4-10.8) Medications Medications Dose Ordered Sig/Lizett Route Start Time Stop Time Status Last Admin Dose Admin Morphine Sulfate 4 mg STK-MED ONCE .ROUTE 02/24/25 12:29 02/24/25 12:25 DC 02/24/25 12:27 4 MG Ondansetron HCl 4 mg ONCE ONCE IV 02/24/25 11:45 02/24/25 11:49 DC 02/24/25 12:26 4 MG Sodium Chloride 1,000 ml @ 1,000 mls/hr Q1H ONCE IV 02/24/25 11:45 02/24/25 12:44 DC 02/24/25 11:58 1,000 MLS/HR Assessment/Plan Assessment/Plan Assessment Intractable abdominal pain Acute kidney injury Plan Admit the patient to Med surge to the hospitalist GI consultation Clear liquid diet Pain management Continue treatment per orders. Plan discussed with: Patient My Orders Orders - NADEEM DELVALLE Procedure Category Date Status Time * Gi Dvh Hand Glove Cleaner CONS 02/24/25 Transmitted 13:50 Ketorolac Injection PHA 02/24/25 In Process (Toradol Injection) 14:00 Basic Metabolic Panel LAB 02/25/25 Verified 04:00 Lipase LAB 02/24/25 In Process 13:50 Admit ADMIT 02/24/25 Transmitted 13:50 Hydrocodone-Acet PHA 02/24/25 In Process 5/325mg Tab (Proctor 14:00 Ondansetron Hcl PHA 02/24/25 In Process (Zofran) 14:00 Complete Blood Count LAB 02/25/25 Verified 04:00 Condition: Stable OMAYRA 02/24/25 In Process 13:50 Acetaminophen Tablet PHA 02/24/25 In Process (Tylenol Tablet) 14:00 Clear Liq Diet DIET 02/24/25 Transmitted Dinner Bedrest With Bathroom OMAYRA 02/24/25 In Process Privileg 13:50 Date of Service: Feb 24, 2025 Billing Provider: NADEEM DELVALLE Common Visit Codes: [id number] INP/OBS CARE (MOD) NADEEM DELVALLE Feb 24, 2025 14:32
--- NOTE | 2025-02-25 11:23 | DVHCONRES ---
Date Seen: Feb 24, 2025 Resident Creating Document: JHAJJ,SARPUNEET RESIDENT Referring Physician DALTON Tse Reason for Consultation Abdominal pain History of Present Illness Patient is a 68-year-old male with a medical history of hypertension, insulin- dependent type 2 diabetes mellitus, chronic kidney disease presented to the hospital with a chief complaint of abdominal pain. Patient reported sudden onset abdominal pain in the left flank area yesterday denied which was sharp and burning in character, radiating along the left flank in the left mid back in a dermatomal fashion and he felt like there was not in the area. Patient was diagnosed to have shingles a week ago and was apparently treated with a week of antiviral medication. Patient denied any diarrhea, constipation, fever, chills, weight loss, nausea or vomiting, blood in stool. Past Medical History As per HPI Past Surgical History Denies any recent surgeries Family History: Diabetes mellitus G8 MOTHER Hypertension G8 MOTHER Family History Noncontributory to the illness Social History Denies current smoking, alcohol, drug use Allergies: Coded Allergies: NO KNOWN ALLERGIES (Unverified , 02/24/25) Home Meds Reported Medications Insulin Lispro (Human) (Humalog) 100 Unit/Ml Inj, 20 UNIT SC BID, INJ 02/24/25 Insulin Glargine (Lantus) 100 Unit/Ml Inj, 35 UNIT SC BID, INJ 02/24/25 Current Medications Current Medications Medications (Trade) Dose Ordered Sig/Lizett Route PRN Reason Start Time Stop Time Status Last Admin Ketorolac Tromethamine (Toradol Injection) 15 mg Q6HPRN PRN IV SEVERE PAIN (7-10 PAIN SCALE) 02/24/25 14:00 03/01/25 13:59 Acetaminophen/ Hydrocodone Bitart ([place] 5/325MG Tab) 1 tab Q4HP PRN PO MODERATE PAIN (4-6 PAIN SCALE) 02/24/25 14:00 Ondansetron HCl (Zofran) 4 mg Q4HP PRN IV NAUSEA / VOMITING 02/24/25 14:00 Acetaminophen (Tylenol Tablet) 650 mg Q6HP PRN PO PAIN SCALE 1-3 OR TEMP>100.4 02/24/25 14:00 Losartan Potassium (Cozaar Tablet) 50 mg DAILY PO 02/25/25 10:00 Diagnostic Test (Pha) (Accu-Chek Comfort Curve T) 1 strip ACHS 02/24/25 22:00 Insulin Human Regular (InsuLIN R) HS SC 02/24/25 22:00 Insulin Human Regular (InsuLIN R) AC SC 02/25/25 07:00 Dextrose 50 ml UD PRN IV Blood Sugar LESS THAN 60 02/24/25 17:45 Review of Systems Reports abdominal pain has improved currently [id number] Nausea, vomiting, diarrhea or constipation Vital Signs Vital Signs Date Time Temp Pulse Resp B/P (MAP) Pulse Ox O2 Delivery O2 Flow Rate FiO2 02/24/25 16:52 97.8 61 18 166/98 (120) 95 97.8 02/24/25 15:10 Room Air* 0 21 Physical Exam Gen - no pallor, no scleral icterus Skin - Patients skin is warm and dry. Crusted lesion seen in the left flank dermatome HEENT - normocephalic, atraumatic, dry mucous membranes. Neck - supple, no lymphadenopathy Pulmonary - B/L clear breath sounds cardiovascular - regular S1,S2 heard GI - soft abdomen without tenderness to palpation except in the area of the crusted lesions. Bowel sounds normoactive. Neurological - Patient is alert and oriented x4. No motor or sensory weakness Labs/Diagnostic Data Labs Test 02/24/25 09:06 02/24/25 09:00 Range/Units White Blood Count 5.3 4.4-10.8 10^3/uL Red Blood Count 4.12 L 4.5-5.90 10^6/uL Hemoglobin 13.1 L 13.5-17.5 g/dL Hematocrit 38.6 L 41.0-53.0 % Mean Corpuscular Volume 93.7 80.0-100.0 fL Mean Corpuscular Hemoglobin 31.9 28.0-32.0 pg Mean Corpuscular Hemoglobin Concent 34.0 32.0-36.0 g/dL Red Cell Distribution Width 14.4 H 11.8-14.3 % Platelet Count 312 140-450 10^3/uL Mean Platelet Volume 7.5 6.9-10.8 fL Neutrophils (%) (Auto) 35.1 L 37.0-80.0 % Lymphocytes (%) (Auto) 52.6 H 10.0-50.0 % Monocytes (%) (Auto) 6.9 0.0-12.0 % Eosinophils (%) (Auto) 4.9 0.0-7.0 % Basophils (%) (Auto) 0.5 0.0-2.0 % Neutrophils # (Auto) 1.9 1.6-8.6 10 ^3/uL Lymphocytes # (Auto) 2.8 0.4-5.4 10 ^3/uL Monocytes # (Auto) 0.4 0-1.3 10 ^3/uL Eosinophils # (Auto) 0.3 0-0.8 10 ^3/uL Basophils # (Auto) 0 0-0.2 10 ^3/uL Nucleated Red Blood Cells 0.0 % Sodium Level 141 136-145 mmol/L Potassium Level 3.9 3.5-5.1 mmol/L Chloride Level 107 98-107 mmol/L Carbon Dioxide Level 28 20-31 mmol/L Anion Gap 6 5-15 Blood Urea Nitrogen 12 9-23 mg/dL Creatinine 1.39 H 0.700-1.30 mg/dL Glomerular Filtration Rate Calc 56 >90 mL/min BUN/Creatinine Ratio 8.6 L 10.0-20.0 Serum Glucose 177 H 74-106 mg/dL Calcium Level 8.5 L 8.7-10.4 mg/dL Lipase 49 12-53 U/L Urine Color Light-yellow Yellow Urine Clarity Clear Clear Urine pH 5.0 5.0-9.0 Urine Specific [place] 1.015 1.001-1.035 Urine Protein Negative Negative Urine Ketones Negative Negative Urine Blood Negative Negative /uL Urine Nitrite Negative Negative Urine Bilirubin Negative Negative Urine Urobilinogen Normal Negative mg/dL Urine Leukocyte Esterase Negative Negative /uL Urine RBC <1 0 - 3 /hpf Urine Microscopic WBC 1 0-3 /HPF Urine Squamous Epithelial Cells None seen <5 /hpf Urine Bacteria None seen None Seen /hpf Urine Glucose 1+ H Normal mg/dL Assessment Acute intractable abdominal pain Post herpetic neuralgia Hepatomegaly CKD Insulin-dependent type 2 diabetes mellitus Uncontrolled hypertension Plan - patient would benefit from pain control medications and gabapentin as the pain is likely post herpetic neuralgia - advanced diet to soft - insulin - antihypertensive medication as per primary Plan discussed with Dr. Ware Plan discussed with: Patient, Other (SEVEN Galaviz) ANY COLEMAN RESIDENT Feb 24, 2025 18:25
--- NOTE | 2025-02-25 15:11 | DVHDS2 ---
Discharge Summary Date of Admission Feb 24, 2025 at 13:50 Date of Discharge: Feb 25, 2025 Admitting Diagnosis Intractable abdominal pain Acute kidney injury Labs/Diagnostic Data: Laboratory Results Test 02/25/25 05:16 02/25/25 04:28 02/24/25 09:06 02/24/25 09:00 POC Glucose 191 mg/dl (70-106) White Blood Count 5.9 10^3/uL (4.4-10.8) Red Blood Count 4.09 10^6/uL (4.5-5.90) Hemoglobin 12.9 g/dL (13.5-17.5) Hematocrit 38.1 % (41.0-53.0) Mean Corpuscular Volume 93.0 fL (80.0-100.0) Mean Corpuscular Hemoglobin 31.5 pg (28.0-32.0) Mean Corpuscular Hemoglobin Concent 33.9 g/dL (32.0-36.0) Red Cell Distribution Width 14.1 % (11.8-14.3) Platelet Count 302 10^3/uL (140-450) Mean Platelet Volume 7.6 fL (6.9-10.8) Neutrophils (%) (Auto) 44.1 % (37.0-80.0) Lymphocytes (%) (Auto) 42.0 % (10.0-50.0) Monocytes (%) (Auto) 9.1 % (0.0-12.0) Eosinophils (%) (Auto) 4.3 % (0.0-7.0) Basophils (%) (Auto) 0.5 % (0.0-2.0) Neutrophils # (Auto) 2.6 10 ^3/uL (1.6-8.6) Lymphocytes # (Auto) 2.5 10 ^3/uL (0.4-5.4) Monocytes # (Auto) 0.5 10 ^3/uL (0-1.3) Eosinophils # (Auto) 0.3 10 ^3/uL (0-0.8) Basophils # (Auto) 0 10 ^3/uL (0-0.2) Nucleated Red Blood Cells 0.8 % Sodium Level 141 mmol/L (136-145) Potassium Level 4.6 mmol/L (3.5-5.1) Chloride Level 106 mmol/L (98-107) Carbon Dioxide Level 28 mmol/L (20-31) Anion Gap 7 (5-15) Blood Urea Nitrogen 10 mg/dL (9-23) Creatinine 1.26 mg/dL (0.700-1.30) Glomerular Filtration Rate Calc 63 mL/min (>90) BUN/Creatinine Ratio 7.9 (10.0-20.0) Serum Glucose 165 mg/dL (74-106) Calcium Level 8.4 mg/dL (8.7-10.4) Lipase 49 U/L (12-53) Urine Color Light-yellow (Yellow) Urine Clarity Clear (Clear) Urine pH 5.0 (5.0-9.0) Urine Specific [place] 1.015 (1.001-1.035) Urine Protein Negative (Negative) Urine Ketones Negative (Negative) Urine Blood Negative /uL (Negative) Urine Nitrite Negative (Negative) Urine Bilirubin Negative (Negative) Urine Urobilinogen Normal mg/dL (Negative) Urine Leukocyte Esterase Negative /uL (Negative) Urine RBC <1 /hpf (0 - 3) Urine Microscopic WBC 1 /HPF (0-3) Urine Squamous Epithelial Cells None seen /hpf (<5) Urine Bacteria None seen /hpf (None Seen) Urine Glucose 1+ mg/dL (Normal) Other Laboratory Tests 02/25/25 04:28 Brief Hx & Hospital Course: 68-year-old male presents for evaluation of abdominal pain. Patient endorses a two day history of left lower quadrant cramping that is intermittent. He states that today the cramping low as more constant. No nausea or vomiting. No diarrhea. No fever or chills. Patient reports recently being treated for shingles which was localized to his left abdomen. Patient has made GI recommended pain control. Patient is on clear liquid diet and IV fluids. Patient had to leave AMA. Patient is AO x3 risks and benefits and possible daily and left AMA. Condition at Discharge: Stable Final Diagnosis/Problems List [place] Intractable abdominal pain Discharge Disposition: AMA Discharge Instruct/Medications Diet: See Comment (Clear liquid diet and advance as tolerated) Activity: No Restrictions, As Tolerated Follow Up/Referral: Follow the PCP within 1-2 days Scheduled Insulin Glargine (Lantus), 35 UNIT SC BID, (Reported) Insulin Lispro (Human) (Humalog), 20 UNIT SC BID, (Reported) 35 Discharge Statement: "Patient was advised to return to the ER or call 911 if any headaches, dizziness, shortness of breath, chest pain, abdominal pain, bleeding, fevers, or worsening of medical condition. Patient was counseled about treatment plan, medications, possible side effects, patientverbalized understanding. All questions were answered to the best of my ability. This discharge took greater then 30 minutes in planning, reviewing documentation, counseling the patient, and discussing with other team members." ASSESSMENT ASSESSMENT Assessment Date of Service: Feb 25, 2025 Billing Provider: KETAN COHEN MD Common Visit Codes: 65047-UPB/OBS DISCH DAY <30MIN KETAN COHEN MD Feb 25, 2025 15:11
== END 2025-02-25 09:50 | disposition left against medical advice (07) | DRG 683 ==
LOC: ER 08:27 → OVERFLOW 13:50 → EAST 15:06
PROVIDERS: ADMIT Internal Medicine; ATTEND Internal Medicine
DX: N17.9 Acute kidney failure, unspecified (principal); B02.29 Other postherpetic nervous system involvement; R10.32 Left lower quadrant pain; I12.9 Hypertensive chronic kidney disease with stage 1 through stage 4 chronic kidney disease, or unspecified chronic kidney disease; Z53.29 Procedure and treatment not carried out because of patient's decision for other reasons; E11.22 Type 2 diabetes mellitus with diabetic chronic kidney disease; N18.9 Chronic kidney disease, unspecified; R16.0 Hepatomegaly, not elsewhere classified; Z79.4 Long term (current) use of insulin; Z79.899 Other long term (current) drug therapy
CPT/HCPCS: 36415; 74177; 80048; 81001; 82962; 83690; 85025; 96361; 96374; 99291; G0378; J1815; J2405

== ENCOUNTER 2025-03-14 09:30 | Emergency (ER) | payer OTHER ==
[~2025-03-14] VITALS: Ht 185.4 cm; Wt 118.3 kg
[~2025-03-14 09:30] MED LIST: INSLANTI SC; INSU100I2 SC
[2025-03-14 10:21] LABS: Hematocrit 39.6 % (41.0-53.0); Hemoglobin 13.6 g/dL (13.5-17.5); Mean Corpuscular Hemoglobin 32.0 pg (28.0-32.0); Mean Corpuscular Volume 92.7 fL (80.0-100.0); Nucleated Red Blood Cells % 0.1 %
[2025-03-14 10:24] LABS: Anion Gap 9 (5-15); Carbon Dioxide 29 mmol/L (20-31); Chloride 100 mmol/L (98-107); Potassium 3.6 mmol/L (3.5-5.1); Sodium 138 mmol/L (136-145)
[2025-03-14 10:25] LABS: Calcium 9.4 mg/dL (8.7-10.4)
[2025-03-14 10:30] LABS: BUN/Creatinine Ratio 10.0 (10.0-20.0); Blood Urea Nitrogen 15 mg/dL (9-23); Glucose 104 mg/dL (74-106)
--- NOTE | 2025-03-14 10:31 | ED.PDOC ---
History of Present Illness(SKN HPI Comments This is a 69 year old male presenting to the ED with chief complaint of painful rash. Patient reports that he has been experiencing LLQ abdominal pain that radiates to his grown for the past few days. Patient relays that he had been diagnosed with Shingles 3 weeks ago to the same area of his pain, being prescribed Gabapentin. Patient states that his pain has continued despite the rash healing and the Gabapentin has provided little relief. Patient denies any N/V/D, fever, or chills. Chief Complaint: Abdominal Pain Time Seen by MD: 10:29 History of Present Illness: Nurses Notes, Medications, Allergies Allergies: Coded Allergies: NO KNOWN ALLERGIES (Unverified , 02/24/25) Home Meds Reported Medications Insulin Lispro (Human) (Humalog) 100 Unit/Ml Inj, 20 UNIT SC BID, INJ 02/24/25 Insulin Glargine (Lantus) 100 Unit/Ml Inj, 35 UNIT SC BID, INJ 02/24/25 Information Source: Patient, Spouse Mode of Arrival: Ambulatory Severity: Moderate Timing: Days Duration: Since onset Prehospital treatment: None Location: Abdomen, Back Mechanism: Spontaneous Onset Developed: Rash Object: None Condition of Object: None Retained Foreign Body: No Wound Type: Other Immunization Status of Animal: NA Tetanus: Unknown Past Medical History PAST MEDICAL HISTORY: DM Surgical History: Denies all surgeries Family History Family History: Reviewed,noncontributory to illness Social History Smoker: Non-Smoker Alcohol: Denies ETOH Use Drugs: Denies Drug Use Lives In: Home Constitutional: denies: chills, diaphoresis, fatigue, fever, malaise, sweats, weakness, others EENTM: denies: blurred vision, double vision, ear bleeding, ear discharge, ear drainage, ear pain, ear ringing, eye pain, eye redness, hearing loss, mouth pain, mouth swelling, nasal discharge, nose bleeding, nose congestion, nose pain, photophobia, tearing, throat pain, throat swelling, voice changes, others Respiratory: denies: cough, hemoptysis, orthopnea, SOB at rest, shortness of breath, SOB with excertion, stridor, wheezing, others Cardiovascular: denies: chest pain, dizzy spells, diaphoresis, Dyspnea on exertion, edema, irregular heart beat, left arm pain, lightheadedness, palpitations, PND, syncope, others Gastrointestinal: reports: abdominal pain; denies: abdomen distended, blood streaked bowels, constipated, diarrhea, dysphagia, difficulty swallowing, abram temesis, melena, nausea, poor appetite, poor fluid intake, rectal bleeding, rectal pain, vomiting, others Genitourinary: denies: burning, dysuria, flank pain, frequency, hematuria, incontinence, penile discharge, penile sore, pain, testicle pain, testicle swelling, urgency, others Neurological: denies: dizziness, fainting, headache, left sided numbness, left sided weakness, numbness, paresthesia, pre-existing deficit, right sided numbness, right sided weakness, seizure, speech problems, tingling, tremors, weakness, others Musculoskeletal: denies: back pain, gout, joint pain, joint swelling, muscle pain, muscle stiffness, neck pain, others Integumetry: reports: rash; denies: bruises, change in color, change in hair/nails, dryness, laceration, lesions, lumps, wounds, others Allergic/Immunocompromised: denies: Difficulty Healing, Frequent Infections, Hives, Itching, others Hematologic/Lymphatic: denies: anemia, blood clots, easy bleeding, easy bruising, swollen glands, others Endocrine: denies: excessive hunger, excessive sweating, excessive thirst, excessive urination, flushing, intolerance to cold, intolerance to heat, unexplained weight gain, unexplained weight loss, others Psychiatric: denies: anxiety, bipolar disorder, depression, hopeless, panic disorder, schizophrenia, sleepless, suicidal, others All Other Systems: Reviewed and Negative Physical Exam General Appearance: No Apparent Distress, Normal HEENT: Normal ENT Inspection, Pharynx Normal, TMs Normal Neck: Full Range of Motion, Non-Tender, Normal, Normal Inspection Respiratory: Chest Non-Tender, Lungs Clear, No Accessory Muscle Use, No Respiratory Distress, Normal Breath Sounds Cardiovascular: No Edema, No JVD, No Murmur, No Gallop, Normal Peripheral Pulses, Regular Rate/Rhythm Breast Exam: Deferred Gastrointestinal: No Organomegaly, Non Tender, No Pulsatile Mass, Normal Bowel Sounds, Soft Genitalia: Deferred Pelvic: Deferred Rectal: Deferred Extremities: No calf tenderness, Normal capillary refill, Normal inspection, Normal range of motion, Non-tender, No pedal edema Musculoskeletal : Apperance: Normal Neurologic: Alert, ship superintendent II-XII nml as Tested, No Motor Deficits, Normal Affect, Normal Mood, No Sensory Deficits Cerebellar Function: Normal Reflexes: Normal Skin: Dry, Normal Color, Warm, Other (Healing shingles rash to LLQ abdomen and left lower back with no surrounding erythema noted.) Lymphatic: No Adenopathy Was a procedure done? Was a procedure done?: No Differential Diagnosis (INTG) Differential Diagnosis: Cellulitis, Contact Dermatitis, Herpes Zoster/Simplex X-Ray, Labs, Meds, VS Vital Signs Date Time Temp Pulse Resp B/P (MAP) Pulse Ox O2 Delivery O2 Flow Rate FiO2 03/14/25 11:25 97.8 03/14/25 11:03 97.5 78 16 140/103 (115) 92 97.5 03/14/25 09:31 97.6 78 17 158/95 96 97.6 Lab Test 03/14/25 10:23 03/14/25 10:04 Range/Units Urine Color Light-yellow Yellow Urine Clarity Clear Clear Urine pH 5.5 5.0-9.0 Urine Specific [place] 1.009 1.001-1.035 Urine Protein Negative Negative Urine Ketones Negative Negative Urine Blood Negative Negative /uL Urine Nitrite Negative Negative Urine Bilirubin Negative Negative Urine Urobilinogen Normal Negative mg/dL Urine Leukocyte Esterase Negative Negative /uL Urine RBC 1 0 - 3 /hpf Urine Microscopic WBC < 1 0-3 /HPF Urine Squamous Epithelial Cells Few <5 /hpf Urine Bacteria None seen None Seen /hpf Urine Glucose Trace Normal mg/dL White Blood Count 6.1 4.4-10.8 10^3/uL Red Blood Count 4.27 L 4.5-5.90 10^6/uL Hemoglobin 13.6 13.5-17.5 g/dL Hematocrit 39.6 L 41.0-53.0 % Mean Corpuscular Volume 92.7 80.0-100.0 fL Mean Corpuscular Hemoglobin 32.0 28.0-32.0 pg Mean Corpuscular Hemoglobin Concent 34.5 32.0-36.0 g/dL Red Cell Distribution Width 13.9 11.8-14.3 % Platelet Count 258 140-450 10^3/uL Mean Platelet Volume 7.8 6.9-10.8 fL Neutrophils (%) (Auto) 35.1 L 37.0-80.0 % Lymphocytes (%) (Auto) 48.0 10.0-50.0 % Monocytes (%) (Auto) 8.7 0.0-12.0 % Eosinophils (%) (Auto) 7.8 H 0.0-7.0 % Basophils (%) (Auto) 0.4 0.0-2.0 % Neutrophils # (Auto) 2.1 1.6-8.6 10 ^3/uL Lymphocytes # (Auto) 2.9 0.4-5.4 10 ^3/uL Monocytes # (Auto) 0.5 0-1.3 10 ^3/uL Eosinophils # (Auto) 0.5 0-0.8 10 ^3/uL Basophils # (Auto) 0 0-0.2 10 ^3/uL Nucleated Red Blood Cells 0.1 % Sodium Level 138 136-145 mmol/L Potassium Level 3.6 3.5-5.1 mmol/L Chloride Level 100 98-107 mmol/L Carbon Dioxide Level 29 20-31 mmol/L Anion Gap 9 5-15 Blood Urea Nitrogen 15 9-23 mg/dL Creatinine 1.50 H 0.700-1.30 mg/dL Glomerular Filtration Rate Calc 50 >90 mL/min BUN/Creatinine Ratio 10.0 10.0-20.0 Serum Glucose 104 74-106 mg/dL Calcium Level 9.4 8.7-10.4 mg/dL Current Medications Medications (Trade) Dose Ordered Sig/Lizett Route Start Time Stop Time Status Last Admin Gabapentin (Neurontin Capsule) 800 mg ONCE ONCE PO 03/14/25 10:30 03/14/25 10:33 DC 03/14/25 11:24 Ketorolac Tromethamine (Toradol Injection) 30 mg ONCE ONCE IM 03/14/25 10:45 03/14/25 10:46 DC 03/14/25 11:26 Lidocaine (Lidoderm 5% Topical Patch) 1 patch ONCE ONCE TOP 03/14/25 10:45 03/14/25 10:46 DC 03/14/25 11:26 Acetaminophen (Tylenol Tablet Or Capsule) 1,000 mg ONCE ONCE PO 03/14/25 10:45 03/14/25 10:46 DC 03/14/25 11:25 [facility] [address] [place] [id number] Ph: [phone] DIAGNOSTIC IMAGING Diagnostic Imaging Report : [id number] Signed PATIENT: TAHIRA NUNO ACCT: [id number] UNIT: [id number] : 03/11/1956 LOC: ER ROOM / BED: / AGE / SEX: 69 / M ADM STATUS: REG ER SERVICE [id number] ORDERING PHYSICIAN: VALERIE WICK MD PROCEDURE(s): ABPL - CT AB PEL WO CON-NO ORAL OR IV REASON: Left flank to LLQ pain ORDER NUMBER(s): [id number], ACCESSION NUMBER(s): [id number] Exam: CT CT AB PEL WO CON-NO ORAL OR IV History: Left flank to LLQ pain Comparison Study: CT CT AB PEL WITH IV CON ONLY on DOS: 02/24/25 Technique: Multidetector spiral CT of the abdomen and pelvis was performed from lung bases to pubic symphysis. Imaging was performed without intravenous contrast. Coronal and sagittal multiplanar reformats were obtained from the axial data set by the technologist. Radiation Dose : 1. Abdomen/Pelvis: CTDIvol 24.54 mGy, DLP 1436.28 mGy*cm. Findings: Evaluation of vasculature and solid organs is limited due to lack of intravenous contrast use. Lung Bases: Lung bases are clear. Visualized portions of the heart and pericardium are unremarkable. Liver: The liver is stable in size. No focal lesions. Gallbladder and Biliary Tree: The gallbladder is unremarkable No intrahepatic or extrahepatic biliary ductal dilatation. Spleen: Unremarkable. Pancreas: The pancreas is grossly unremarkable. Adrenal Glands: There is a 5 mm low-density left adrenal nodule. The right adrenal is unremarkable. Kidneys: There is right perinephric fat stranding. No hydronephrosis. No obstructive renal or ureteral calculus is identified. GI tract: The stomach is grossly normal in appearance. No evidence of small bowel wall thickening or abnormal dilatation to suggest bowel obstruction. There is sigmoid diverticulosis without acute diverticulitis. The appendix is visualized and is normal in caliber. Peritoneum/mesentery/retroperitoneum. No evidence of free intraperitoneal air. No ascites. No evidence of suspicious lymphadenopathy. Abdominal Wall: Unremarkable. Vasculature: The visualized abdominal aorta is normal in size and caliber. Evaluation of abdominal and pelvic vessels is limited due to lack of intravenous contrast. Urinary Bladder: No significant urinary bladder wall thickening. Mild fat stranding surrounds the bladder. Pelvic Organs: Unremarkable Musculoskeletal: No aggressive focal bony lesions, acute fractures or dislocation. Intervertebral disc degeneration is noted at L5-S1. There is bilateral neural foraminal stenosis at L5-S1. IMPRESSION: 1. Right perinephric fat stranding and ATED BY: MARILEE KAISER MD DICTATED DATE/TIME: 03/14/25 1037 SIGNED BY: MARILEE KAISER MD SIGNED DATE/TIME: 03/14/25 1037 CC: Images Reviewed?: Images reviewed and evaluated by me Time of 1ST Reevaluation: 11:28 Reevaluation 1ST: Unchanged Time of 2ND Reevaluation: 13:06 Reevaluation 2ND: Improved Patient Education/Counseling: Diagnosis, Treatment Family Education/Counseling: Diagnosis, Treatment SEPSIS Sepsis Screen Date sepsis recognized/suspect: Mar 14, 2025 Time Sepsis recognized/suspect: 930 Recent Procedure: No On Antibiotic Therapy: No Respiratory Rate >20: No Heart Rate >90: No Temp<36 C (96.8 F) or >38.3 C: No SBP <90 or MAP <65 mmHG: No New Acute Mental Status Change: No Is the patient on CPAP, BIPAP,: No Physician Orders Ct Ab Pel Wo Con-No Oral Or Iv (03/14/25 09:49) Vital Signs Date Time Temp Pulse Resp B/P (MAP) Pulse Ox O2 Delivery O2 Flow Rate FiO2 03/14/25 11:25 97.8 03/14/25 11:03 97.5 78 16 140/103 (115) 92 97.5 03/14/25 09:31 97.6 78 17 158/95 96 97.6 Laboratory Tests Test 03/14/25 10:04 White Blood Count 6.1 10^3/uL (4.4-10.8) Medications Medications Dose Ordered Sig/Lizett Route Start Time Stop Time Status Last Admin Dose Admin Acetaminophen 1,000 mg ONCE ONCE PO 03/14/25 10:45 03/14/25 10:46 DC 03/14/25 11:25 Gabapentin 800 mg ONCE ONCE PO 03/14/25 10:30 03/14/25 10:33 DC 03/14/25 11:24 Ketorolac Tromethamine 30 mg ONCE ONCE IM 03/14/25 10:45 11/17/25 10:46 DC 03/14/25 11:26 Lidocaine 1 patch ONCE ONCE TOP 03/14/25 10:45 03/14/25 10:46 DC 03/14/25 11:26 Departure 1 Departure Time of Disposition: 13:05 (59-year-old male presenting for evaluation of recurrent left-sided flank pain radiating to the left abdomen over the past few weeks. Discomfort did start after he was diagnosed with shingles. Currently has healing shingles rash likely having post herpetic neuralgia given distribution of discomfort. No surrounding skin changes, erythema, warmth to suggest a cellulitis, superimposed skin infection of the shingles rash. However, given radiation of back pain to the groin could be consistent with nephrolithiasis. Left-sided abdominal pain consider possible diverticulitis. CT of the abdomen and pelvis was performed which shows no evidence of nephrolithiasis, no diverticulitis and no other evidence of acute intra- abdominal process along the left side to explain the patient's discomfort. CBC with no evidence of critical leukocytosis or significant anemia. Mental with no evidence of acute electrolyte abnormalities or acute kidney insufficiency. Urinalysis with no signs to suggest urinary tract infection. Treated for discomfort here with IM Toradol, oral Tylenol, topical lidocaine patch, gabapentin. Patient is stable for discharge for further outpatient management. Advised to follow up with his primary care doctor for further recommendations of management for his post herpetic neuralgia.) Impression: Primary Impression: Post herpetic neuralgia Additional Impression: Abdominal wall pain Disposition: HOME / SELF CARE / HOMELESS Condition: Stable Additional Instructions: You were treated for persistent post herpetic neuralgia. Please continue taking the gabapentin that was previously prescribed to. You were given a prescription for a few days of [place] to help for severe pain. You were also given a prescription for topical lidocaine patches. Please follow up with doctor for further management of post herpetic neuralgia. e-Prescriptions Hydrocodone-Acetaminophen (Hydrocodone Bitartrate/AC 5-325 mg) 1 Tab Tab 1 TAB PO Q6HP PRN for 3 Days, #12 TAB Prov: VALERIE WICK MD 03/14/25 Lidocaine (LIDODERM 5% TOPICAL PATCH) 1 Patch Ph 1 PATCH TOP DAILY PRN for 10 Days, #10 PATCH 1 Refill Prov: VALERIE WICK MD 03/14/25 Discharged With: Self Critical Care Note Critical Care Time?: No Stability Stability form required: No Heart Score Heart Score: Heart Score Response (Comments) Value History N/A 0 EKG N/A 0 Age N/A 0 Risk Factors N/A 0 Troponin N/A 0 Total 0 I personally scribed for VALERIE WICK MD ([email or web address]) on 03/14/25 at 10:31. Electronically submitted by Pan Newell ([email or web address]). I personally scribed for VALERIE WICK MD ([email or web address]) on 03/14/25 at 10:42. Electronically submitted by Pan Newell ([email or web address]). VALERIE WICK MD Mar 14, 2025 10:31
--- NOTE | 2025-03-14 10:39 | DVH ---
Exam: CT CT AB PEL WO CON-NO ORAL OR IV History: Left flank to LLQ pain Comparison Study: CT CT AB PEL WITH IV CON ONLY on DOS: 02/24/25 Technique: Multidetector spiral CT of the abdomen and pelvis was performed from lung bases to pubic symphysis. Imaging was performed without intravenous contrast. Coronal and sagittal multiplanar reformats were obtained from the axial data set by the technologist. Radiation Dose : 1. Abdomen/Pelvis: CTDIvol 24.54 mGy, DLP 1436.28 mGy*cm. Findings: Evaluation of vasculature and solid organs is limited due to lack of intravenous contrast use. Lung Bases: Lung bases are clear. Visualized portions of the heart and pericardium are unremarkable. Liver: The liver is stable in size. No focal lesions. Gallbladder and Biliary Tree: The gallbladder is unremarkable No intrahepatic or extrahepatic biliary ductal dilatation. Spleen: Unremarkable. Pancreas: The pancreas is grossly unremarkable. Adrenal Glands: There is a 5 mm low-density left adrenal nodule. The right adrenal is unremarkable. Kidneys: There is right perinephric fat stranding. No hydronephrosis. No obstructive renal or ureteral calculus is identified. GI tract: The stomach is grossly normal in appearance. No evidence of small bowel wall thickening or abnormal dilatation to suggest bowel obstruction. There is sigmoid diverticulosis without acute diverticulitis. The appendix is visualized and is normal in caliber. Peritoneum/mesentery/retroperitoneum. No evidence of free intraperitoneal air. No ascites. No evidence of suspicious lymphadenopathy. Abdominal Wall: Unremarkable. Vasculature: The visualized abdominal aorta is normal in size and caliber. Evaluation of abdominal and pelvic vessels is limited due to lack of intravenous contrast. Urinary Bladder: No significant urinary bladder wall thickening. Mild fat stranding surrounds the bladder. Pelvic Organs: Unremarkable Musculoskeletal: No aggressive focal bony lesions, acute fractures or dislocation. Intervertebral disc degeneration is noted at L5-S1. There is bilateral neural foraminal stenosis at L5-S1. IMPRESSION: 1. Right perinephric fat stranding and
[2025-03-14 10:45] LABS: Urine Protein, UAD Negative (Negative)
[2025-03-14 11:03] VITALS: BP 140/103; PULSE 78; RESP 16; O2SAT 92
[2025-03-14] MEDS: GABAPENTIN 400 MG CAP PO ONE (11:24)
[2025-03-14 11:25] VITALS: TEMP 97.8
[2025-03-14] MEDS: ACETAMINOPHEN 500 MG TAB or CAP PO ONE (11:25)
[2025-03-14] MEDS: KETOROLAC TROMETH 60MG/2ML VIAL IM ONE (11:26)
[2025-03-14] MEDS: LIDOCAINE 5% TOPICAL PATCH TOP ONE (11:26)
[2025-03-14] MEDS ORDERED: LIDO5DIS21 TOP (13:13)
[2025-03-14] MEDS ORDERED: HYDR-4902 PO (13:13)
== END 2025-03-14 14:10 | disposition home or self-care (01) ==
LOC: ER 09:30
DX: B02.29 Other postherpetic nervous system involvement (principal); R10.32 Left lower quadrant pain; E11.9 Type 2 diabetes mellitus without complications
CPT/HCPCS: 36415; 74176; 80048; 81001; 85025; 96372; 99285; J1885